=== PATIENT | male | born 1960 | race African-American/Black ===

== ENCOUNTER 2017-01-08 16:40 | Emergency (ER) | payer MEDICARE ==
--- NOTE | ~2017-01-08 | CR229 ---
[facility] RADIOLOGY TEXT RESULTS PATIENT: EDEN BRUNO LOCATION: [place] : 64 UNIT #: [id number] AGE: [address]: Cassandra Pastrana SEX: M ORDER DR: [id number] [place], [place] [address] [id number] E MR#: [id number] Acc #: [id number] NAME: EDEN BRUNO : 1960 SEX: M STUDY DATE/TIME: 01/08/2017 17:21 UNIT: [id number] ROOM: STUDY DESCRIPTION: CR Shoulder Min 2 View Lt Attending Physician: Cassandra Pastrana Pa-C Ordering Physician: Cassandra Pastrana Pa-C Primary Care Physician: Primary Care Physician No MEDICAL IMAGING REPORT This report is preliminary unless electronic signature is present EXAM Left shoulder 01/08/2017 INDICATIONS 56-year-old male with pain in the left shoulder for 2 months but no known injury. TECHNIQUE 2 views left shoulder COMPARISON No comparisons FINDINGS AP view with internal and external rotation of the shoulder girdle shows satisfactory relationship of the humeral head and glenoid fossa. The joint space is normal. There is no identifiable fracture or dislocation or bony destructive process about the shoulder girdle anatomy. The acromioclavicular joint is normal. There is no radiopaque foreign body in the region. IMPRESSION Normal shoulder. Dictated by... Fede Linton M.D. THIS IS AN ELECTRONICALLY VERIFIED REPORT Fede Linton M.D. at 01/09/2017 10:10 AM JLY/maggie TD: 01/08/2017 22:16 [facility] RADIOLOGY TEXT RESULTS PATIENT: EDEN BRUNO LOCATION: [facility] : 64 UNIT #: [id number] AGE: [address]: Cassandra Pastrana SEX: M ORDER DR: FANNY #: [id number] MEDICAL IMAGING REPORT Page 1 of 1 COPY
== END 2017-01-08 18:14 | disposition home or self-care (01) ==
LOC: CFTX 16:40 → CED 16:40 → CFTX 17:07
DX: S41.012A Laceration without foreign body of left shoulder, initial encounter (principal); I10 Essential (primary) hypertension; E78.5 Hyperlipidemia, unspecified; Z86.73 Personal history of transient ischemic attack (TIA), and cerebral infarction without residual deficits; K21.9 Gastro-esophageal reflux disease without esophagitis; X58.XXXA Exposure to other specified factors, initial encounter
CPT/HCPCS: 73030; 99283